=== PATIENT | male | born 1935 ===

== ENCOUNTER 2018-07-04 10:28 | Day surgery (SDC) | payer MEDICARE, MEDICAID ==
[2018-07-02 11:15] VITALS: BMI 21.6
[2018-07-04 12:02] LABS: BLOOD UREA NITROGEN 13 mg/dL (9-20); CALCIUM 9.6 mg/dl (8.6-10.4); GFR NON-AFRICAN AMERICAN > 60
[2018-07-04] MEDS ORDERED: ceFAZolin IV 1 gm in Dextrose 1 GM/50 ML BAG IVPB ONE (13:22)
[2018-07-04] MEDS ORDERED: Propofol 10 mg/ml Inj (20 ML) ONE (13:33)
[2018-07-04] MEDS ORDERED: Succinylcholine Chloride 20 mg/ml Syr (5 ml) IV ONE (13:52)
[2018-07-04] MEDS ORDERED: Rocuronium 10 mg/ml (5 ml) ONE (13:52)
[2018-07-04] MEDS ORDERED: Oxycodone/Acetaminophen 5/325 mg Tab PO PRN (15:07)
--- NOTE | 2018-07-04 15:22 | PCM.SURG1 ---
Surgeon's Initial Post Op Note - Surgeon's Notes Surgeon: Dr. Nahum Stanley Community Services Officer: Halley Huntley, PGY2 Type of Anesthesia: General Endo Pre-Operative Diagnosis: left inguinal hernia Operative Findings: indirect inguinal hernia with cord lipoma, weakness of the transverse musculature Post-Operative Diagnosis: same Operation Performed: left inguinal hernia with mesh Specimen/Specimens Removed: cord lipoma and hernia sac Estimated Blood Loss: EBL {In ML}: 5 Post-Op Condition: Fair Date of Surgery/Procedure: 07/04/18 Time of Surgery/Procedure: 13:45
[2018-07-04] MEDS ORDERED: Sodium Chloride 0.9% 1,000 ML IV SCH (15:30)
[2018-07-04] MEDS: HYDROmorphone 0.5 mg/0.5 ml ISec IVP PRN ×2 (15:47→15:56)
[2018-07-04] MEDS ORDERED: HYDROmorphone 0.5 mg/0.5 ml ISec ONE (15:47)
[2018-07-04 16:38] VITALS: RESP 18
[2018-07-04 18:47] VITALS: BP 130/61; PULSE 65; TEMP 97.8; O2SAT 99
--- NOTE | 2018-07-06 22:05 | OP ---
PROCEDURE DATE: 07/04/2018 PREOPERATIVE DIAGNOSIS: Left inguinal hernia. POSTOPERATIVE DIAGNOSIS: Left inguinal hernia. PROCEDURE: Left inguinal hernia repair with mesh. SURGEON: Nahum Stanley MD [employer]ENCE PRACTITIONER: Halley Huntley DO TYPE OF ANESTHESIA: General. ANESTHESIA ADMINISTERED BY: DORINA and Dr. Villa. DESCRIPTION OF PROCEDURE: With the patient in the supine position under adequate general anesthesia, the left groin was prepped and draped in the usual sterile manner. A transverse incision was made in the left upper groin crease, taken down through the subcutaneous tissue. The external oblique level was exposed and a fatty bulge was noted exiting from the area of the external inguinal ring. The external oblique aponeurosis was opened parallel to its fibers from the internal inguinal ring to the external inguinal ring and the spermatic cord was dissected as it passed over the pubic tubercle and elevated over Tamir drain. The inguinal floor was noted to be split with a defect in the transversus musculature, although there was no bulge through the actual floor. The spermatic cord itself was dissected and a large lipoma of the cord was dissected back to the internal ring where it was suture ligated with 3-0 Vicryl and excised and indirect hernia sac was also identified and dissected free of the underlying cord structures back to the level of the internal inguinal ring. The sac was opened, there were no incarcerated contents. The sac was suture ligated also with the 3-0 Vicryl suture and the sac was amputated. A size medium Prolene hernia plug was then positioned medial to the enlarged internal inguinal ring and the split in the inguinal floor was sutured closed to cover the plug using 0 Vicryl sutures. The flat portion of the mesh was then positioned beneath the spermatic cord, trimmed to the shape and size of the inguinal floor, and sutured medially to the area of the pubic tubercle and then superiorly to the transversalis fascia and inferiorly to the shelving edge of the inguinal ligament. The lateral portion of the mesh was positioned beneath the external oblique layer, and also sutured with the 2-0 Prolene sutures. The external oblique was then reapproximated over the mesh and the spermatic cord using running suture of 0 Vicryl. The subcutaneous layers were approximated with a few 3-0 Vicryl interrupted sutures and closure was performed with running suture of 4-0 Monocryl and Dermabond. The patient tolerated the procedure well and transferred to the recovery room in sable condition. Estimated blood loss for the procedure was 5 mL. Nahum Stanley MD
== END 2018-07-04 18:50 | disposition home or self-care (01) ==
LOC: C.SDS 10:28
PROVIDERS: ATTEND Specialist
DX: K40.90 Unilateral inguinal hernia, without obstruction or gangrene, not specified as recurrent (principal)
CPT/HCPCS: 36415; 49505; 55520; 80048; 82948; J0690; J1170; J2704; J3010

== ENCOUNTER 2018-09-23 07:38 | Day surgery (SDC) | payer MEDICARE, MEDICAID ==
[2018-07-02 12:05] VITALS: BMI 21.6
[2018-09-23] MEDS ORDERED: Lactated Ringer's 500 ML IV ONE ×2 (10:19)
[2018-09-23] MEDS ORDERED: Lidocaine Hydrochloride 5 ML INJ ONE (10:26)
[2018-09-23] MEDS ORDERED: Etomidate 20 mg/10ml Inj IV ONE (10:26)
[2018-09-23] MEDS ORDERED: Propofol 10 mg/ml Inj (20 ML) ONE (10:26)
--- NOTE | 2018-09-23 10:35 | CP.SDSHP ---
Same Day Surgery H & P - History Proposed Procedure: EGD Pre-Op Diagnosis: SEE NOTES - Previous Medical/Surgical History Cardiac: Hypertension Endocrine/Metabolic: Diabetes Neuro: Backaches Misc: Other Pain: 4.Moderate Pain - Allergies Allergies: Allergies No Known Allergies Allergy (Verified 09/23/18 09:25) - Physical Exam General Appearance: N Vital Signs: Vital Signs 09/23/18 09/23/18 09/23/18 09:26 09:39 10:29 Temperature 99.1 F 99.1 F Pulse Rate 58 L 58 L 63 Respiratory 19 19 12 Rate Blood Pressure 143/60 143/60 149/60 O2 Sat by Pulse 99 99 99 Oximetry Mental Status: Alert & Oriented x3 Neuro: WNL Heart: Other Lungs: WNL GI: Other - {Optional Preform as Required} Breast: WNL Abdomen: Other Rectal: Other Integument: WNL : WNL Ortho: Other ENT: WNL - Impression Pt. Evaluated Today:Candidate for Anesthesia & Procedure: Yes - Date & Time Date: 09/23/18 Time: 10:00 Short Stay Discharge - Short Stay Discharge Admitting Diagnosis/Reason for Visit: DYSPEPSIA, GASTRIC ULCER Disposition: HOME/ ROUTINE
[2018-09-23] MEDS ORDERED: Sucralfate 1 gm/10 ml Oral Susp UD PO ONE (10:36)
[2018-09-23] MEDS ORDERED: Pantoprazole 40 mg EC Tab PO STA (10:41)
[2018-09-23] MEDS ORDERED: Belladonna-Phenobarbital PO STA (10:41)
[2018-09-23 11:45] VITALS: BP 129/62; PULSE 59; RESP 11; TEMP 97.2; O2SAT 98
== END 2018-09-23 12:09 | disposition home or self-care (01) ==
LOC: C.ENDO 07:38
PROVIDERS: ATTEND Specialist
DX: K30 Functional dyspepsia (principal); K25.3 Acute gastric ulcer without hemorrhage or perforation; K44.9 Diaphragmatic hernia without obstruction or gangrene; K21.0 Gastro-esophageal reflux disease with esophagitis; K29.70 Gastritis, unspecified, without bleeding
CPT/HCPCS: 43239; 82948; 88305; 88342; J7120